=== PATIENT | male | born 1955 | race Caucasian/White ===

== ENCOUNTER → 2016-07-06 | Outpatient (CLI) | payer BC ==
[~2016-07-06] MED LIST: ASA325 MG PO; CELEBREX200 MG PO; MIRALAX PACKET17 GM PO; OXY IR DPS5 MG PO; PRILOSEC DPS20 MG PO; SENOKOT S1 TAB PO; TUMS DPS500 MG PO; TYLENOL DPS325 MG PO; ULTRAM DPS50 MG PO; ZESTORETIC 20/11 TAB PO
== END | disposition home or self-care (01) ==
LOC: PTH.S 07:53
DX: Z01.812 Encounter for preprocedural laboratory examination (principal)

== ENCOUNTER 2016-07-14 07:16 | Inpatient (IN) | payer BC, SELFPAY ==
[~2016-07-14] VITALS: Ht 177.8 cm; Wt 87.0 kg
[2016-07-17] MEDS ORDERED: PRILOSEC DPS20 MG PO (16:43)
[2016-07-17] MEDS ORDERED: ZESTORETIC 20/11 TAB PO (16:43)
[2016-07-17] MEDS ORDERED: ASA325 MG PO (16:44)
[2016-07-17] MEDS ORDERED: CELEBREX200 MG PO (16:44)
[2016-07-17] MEDS ORDERED: MIRALAX PACKET17 GM PO (16:45)
[2016-07-17] MEDS ORDERED: TYLENOL DPS325 MG PO (16:45)
[2016-07-17] MEDS ORDERED: SENOKOT S1 TAB PO (16:45)
[2016-07-17] MEDS ORDERED: ULTRAM DPS50 MG PO (16:46)
[2016-07-17] MEDS ORDERED: OXY IR DPS5 MG PO (16:46)
[2016-07-17] MEDS ORDERED: TUMS DPS500 MG PO (16:47)
--- NOTE | 2016-07-26 09:27 | OR ---
ADMIT: 07/14/2016 RM/LOC: W.02 [facility] MR#: [id number] [id number] [address] [address] MARTHA HAMLIN [address] [place] [address] Operative/Delivery Room Report SEX: M AGE: 61 : 1955 SURGERY DATE: 07/14/2016 SURGEON: Jonathan Crouch MD POLICE PILOT: Efrain Viramontes PA-C. PREOPERATIVE DIAGNOSIS: Right knee degenerative disease. POSTOPERATIVE DIAGNOSIS: Right knee degenerative disease. OPERATIONS: 1. Right total knee arthroplasty. 2. Intraarticular block. ANESTHESIA: Spinal. COMPLICATIONS: None. ESTIMATED BLOOD LOSS: 100 mL. TOTAL TOURNIQUET TIME: 47 minutes. COMPONENTS: 1. Size 7 lugged Attune femoral component. 2. Size 7 modular tibial component. 3. A 12 mm posterior stabilized insert. 4. A 41 mm oval patellar button. 5. Leggett SpeedSet cement. DESCRIPTION OF OPERATION: The patient was taken to the operating room and the correct extremity was identified. The patient received a spinal anesthetic. The right lower extremity was prepped and draped in a standard fashion. The leg was exsanguinated and tourniquet inflated. An anterior incision was made and dissection was carried through the subcutaneous tissue. A medial parapatellar arthrotomy was performed. An appropriate medial release was performed. The patella was subluxed laterally. The infrapatellar fat pad was partially excised for exposure. At that point, the distal femur was opened up with a drill. We cut 10 mm off the distal femur in 5 degrees of valgus using an intramedullary guide. We then cut the tibia perpendicular to its long axis taking it flush with the affected side with an extramedullary guide. We then sized the femur to a size 7 and pinned this in appropriate external rotation aligning it with the epicondylar axis. We then made anterior, posterior, and chamfer cuts with the 4-in-1 cutting block. We opened up the joint space and removed the remaining posterior osteophytes, meniscus, and PCL ligament. We made our box cut centralizing the femoral component. The tibia was subluxed anteriorly, fit for a size 7 modular tibial tray, punched and drilled in appropriate external rotation. We then removed the remaining tibial osteophytes. We then cut the patella perpendicular to its long axis taking it flush with the lateral facet and fit it for a 41 mm oval patellar button ADMIT: 07/14/2016 RM/LOC: W.02 [facility] MR#: [id number] [address] BOUBACARMARTHA MARCOS [address] [place] [address] Operative/Delivery Room Report SEX: M AGE: 61 : 1955 restoring patellar height. We then extended the knee and opened the joint space to obtain posterior hemostasis and perform a posterior Exparel block. We then put in trial components with a 12 mm insert. At that point, we had full extension, full flexion, patella tracked centrally and no lateral release was required. The knee was also stable to varus and valgus stress testing. All trial components were removed and all the bony surfaces were Waterpik'd clean. We then cemented the tibia, femur, and patella in a standard fashion, put in the trial insert and held the knee in extension. While the cement hardened, we completed our intra-articular Exparel block. Once the cement was hard, we deflated the tourniquet, obtained hemostasis, irrigated out the wound thoroughly, removed the trial insert and put in the real insert. The knee was again found to be stable with full range of motion. No Hemovac drain was used. At that point, the extensor mechanism was closed with an interrupted 0-Vicryl suture with the knee in flexion. The subcutaneous tissue was closed 2-0 Vicryl and lauren were placed in the skin. Mepilex Border dressing was then applied. The patient was taken to the recovery room in stable condition with no complications. Jonathan Crouch MD/ fabiana JOB #: [id number] CC: Jonathan Crouch, Attending Physician Erwin Acevedo, Family Physician
--- NOTE | 2016-07-26 09:27 | HP ---
ADMIT: 07/14/2016 RM/LOC: [facility] MR#: [id number] [address] [address] MARTHA HAMLIN [address] [place] [address] Pre-OP History and Physical SEX: M AGE: 61 : 1955 DATE OF SERVICE: CHIEF COMPLAINT: Right knee pain. HISTORY OF PRESENT ILLNESS: The patient is a 61-year-old male with long- standing history of right knee pain. Right knee pain limits his activity. He has had prior open meniscectomies, progressive knee pain and deformity, had injections no improvement, now being admitted for right total knee arthroplasty. PAST MEDICAL HISTORY: Past medical problems include hypertension. MEDICATIONS: Include lisinopril. ALLERGIES: TO PENICILLIN, BENZATHINE. SOCIAL HISTORY: Denies any significant tobacco or alcohol use. REVIEW OF SYSTEMS: Negative. PHYSICAL EXAMINATION: GENERAL: Healthy-appearing male. EXTREMITIES: He has significant varus deformity to the right knee. He actually hyperextends, probably 45 degrees, flexes to 140, 1+ medial laxity. No lateral laxity. No pain in the hip. Full motor function, normal sensation, and good pulses. DIAGNOSTIC DATA: X-rays; AP, lateral, PA, and flexion view shows advanced right knee arthritis, complete medial collapse, osteochondral defect. IMPRESSION: Advanced right knee degenerative joint disease with osteochondral defect. PLAN: We talked about different options. Failed conservative care. Plan on proceeding with right Attune total knee arthroplasty. He is aware of the risks, benefits and option and agreed to proceed. He has been seen and cleared by medical standpoint. Jonathan Crouch MD/ fabiana JOB #: [id number] CC: Jonathan Crouch, Attending Physician Erwin Acevedo, Family Physician
--- NOTE | 2016-08-29 15:40 | CO ---
ADMIT: 07/14/2016 RM/LOC: [facility] MR#: [id number] [address] [address] MARTHA HAMLIN [address] [place] [address] Consultation Report SEX: M AGE: 61 : 1955 DATE OF CONSULTATION: 07/07/2016 ATTENDING PHYSICIAN: Jonathan Crouch CONSULTING PHYSICIAN: Erwin Acevedo MD REASON FOR CONSULT: Preoperative clearance. HISTORY OF PRESENT ILLNESS: This is a 61-year-old, white male with a longstanding history of right knee pain and degenerative change. It is affecting his ability to walk. He has failed conservative therapy including anti-inflammatories, knee injections, etc., so he is scheduled to undergo a right knee arthroplasty. This was postponed. He did have recent lab work which showed some mild anemia, he had an EGD and colonoscopy. It did show an esophageal ulcer and grade 4 reflux esophagitis. He has been on PPI therapy. He was just re-scoped, which showed Sepulveda's esophagus, but no ulceration, much improved inflammation. So he is safe for anticoagulation at this point. He denies any other specific concerns or complaints. REVIEW OF SYSTEMS: GENERAL: No fevers or chills. HEENT: No headaches, blurry vision, double vision. CARDIAC: No chest pains. PULMONARY: No shortness of breath. GI: No nausea, vomiting, diarrhea, or constipation. : No dysuria, urgency, or frequency. ENDOCRINE: No polyuria, polydipsia. PSYCH: No depression. PAST MEDICAL HISTORY: Hypertension, gastroesophageal reflux disease, recent esophageal ulcer, also history Sepulveda's esophagus, negative for dysplasia. He also has had a previous left knee surgery. CURRENT MEDICATIONS: Include: 1. Lisinopril HCTZ 20/12.5, one tab daily. 2. Omeprazole 20 mg b.i.d. ALLERGIES: PENICILLIN. FAMILY HISTORY: Father is , had hypertension and stroke. Mother with hypertension and Alzheimer's. One sister with breast cancer. OBJECTIVE: VITAL SIGNS: Blood pressure is 120/76, pulse 101, respirations 18, and temp is 92. GENERAL: He is in no acute distress. He is alert and oriented. HEENT: Pupils reactive. Conjunctivae are clear. Clear nasal mucosa. Clear oropharynx. Moist mucous membranes. NECK: Soft and supple. LUNGS: Clear to auscultation with normal respiratory effort. HEART: Regular rate and rhythm. ADMIT: 07/14/2016 RM/LOC: [facility] MR#: [id number] [address] [place], [place] [address] [address] [place] [address] Consultation Report SEX: M AGE: 61 : 1955 ABDOMEN: Soft, nontender. EXTREMITIES: No clubbing. No edema. ASSESSMENT: 1. Right knee degenerative joint disease. 2. Hypertension. 3. Gastroesophageal reflux disease. PLAN: I reviewed all of his blood work, his white count, hemoglobin, and platelets are all fine. His electrolytes were normal. IMAGING DATA: EKG showed nothing acute. I would recommend proceeding with the procedure as scheduled. We will do a full strength aspirin for anticoagulation. Continue his omeprazole twice a day until he has completed anticoagulation and then we can safely go down to once a day. We will follow along in the perioperative period. Erwin Acevedo MD/ fabiana JOB #: [id number] CC: Jonathan Crouch, Attending Physician Erwin Acevedo, Family Physician
--- NOTE | 2016-09-01 21:06 | DS ---
ADMIT: 07/14/2016 RM/LOC: [facility] MR#: [id number] [address] [address] MARTHA HAMLIN [address] [place] [address] General Discharge Summary SEX: M AGE: 61 : 1955 ADMISSION DATE: 07/14/2016 DISCHARGE DATE: 07/16/2016 DATE OF SURGERY: 07/14/2016. REASON FOR ADMISSION: Right knee pain, elective right total knee arthroplasty. HISTORY OF PRESENT ILLNESS: A 61-year-old male with a long-standing history of right knee pain, right knee degenerative joint disease. The right knee pain limits his activity. He has had prior open meniscectomies, progressed his knee pain and deformity, had injections, no improvement, is now being admitted for right total knee arthroplasty. PREOPERATIVE DIAGNOSIS: Right knee degenerative joint disease. POSTOPERATIVE DIAGNOSIS: Right knee degenerative joint disease. PROCEDURE PERFORMED: Right total knee arthroplasty. SURGEON: Jonathan Crouch MD HAND CLOTH EXAMINER: Efrain Viramontes PA-C. COMPLICATIONS: None. ESTIMATED BLOOD LOSS: 100 mL. ANESTHESIA: Spinal. PAST MEDICAL HISTORY: Hypertension. HOSPITAL COURSE: The patient was admitted on 07/14/2016, discharged on 07/16/2016. Length of stay is 2 days. While in the hospital, the patient's postoperative pain is well managed with oral analgesics as well as intravenous analgesics from time to time. The patient's vital signs stayed well within normal limits. While admitted, hemoglobin fell to a low of 10.4. Also in the hospital, the patient attended physical therapy and occupational therapy services, there were no questions from either constitution party involving that. They were seen by Orthopedics each day there in the hospital. All questions and concerns were answered prior to discharge. The patient also met with Social Work Services prior to discharge to work a disposition plan. Disposition to home was decided upon. They were asked to follow up Orthopedics two weeks following surgery. DISCHARGE MEDICATIONS: 1. Aspirin 325 mg p.o. 6 weeks. 2. Celebrex 200 mg p.o. b.i.d. 3. MiraLAX 17 g p.o. daily p.r.n. ADMIT: 07/14/2016 RM/LOC: [facility] MR#: [id number] [address] [address] MARTHA HAMLIN [address] [place] [address] General Discharge Summary SEX: M AGE: 61 : 1955 4. Senokot one tab p.o. b.i.d. 5. Tylenol 325 mg p.o. p.r.n. 6. Tramadol 50 mg one to two tabs every 4-6 hours p.r.n. 7. Zestoretic 20.5. 8. Prinzide-D one tab p.o. daily. 9. Oxy-IR 5 mg one to two tabs every 4-6 hours p.r.n. 10.Tums 500 mg p.o. p.r.n. DISCHARGE DIAGNOSIS: Status post right total knee arthroplasty, right knee degenerative joint disease. DISCHARGE INSTRUCTIONS: The patient is going to be followed up with Orthopedic Clinic two weeks following date of surgery, also to follow up with primary care provider as needed. He will wear the FABIO hose for the first 4-6 weeks and take them off for an hour twice daily, also wear the knee immobilizer at night. Start physical therapy on an outpatient basis. Asked him to contact the Orthopedic Clinic if they had any questions or concerns prior to the first followup appointment. LOBO Mcdaniel / Jonathan Crouch MD / fabiana JOB #: [id number] CC: Jonathan Crouch MD, Attending Physician Erwin Acevedo MD, Family Physician
== END 2016-07-16 11:30 | disposition home or self-care (01) | DRG 470 ==
LOC: WOR 07:16 → 5MS 07:16
PROVIDERS: ADMIT Orthopaedic Surgery
PROC: 0SRC0J9 Replacement of Right Knee Joint with Synthetic Substitute, Cemented, Open Approach (ICD-10-PCS; principal; 2016-07-14)
DX: M17.11 Unilateral primary osteoarthritis, right knee (principal); I10 Essential (primary) hypertension; M21.961 Unspecified acquired deformity of right lower leg; K22.70 Barrett's esophagus without dysplasia; D64.9 Anemia, unspecified; K21.9 Gastro-esophageal reflux disease without esophagitis